=== PATIENT | female | born 1945 | race African-American/Black ===

== ENCOUNTER 2024-05-31 18:08 | Inpatient (IN) | payer MEDICARE ==
[~2024-05-31] VITALS: Ht 172.7 cm; Wt 94.3 kg
[2024-05-31] MEDS: VANCOMYCIN 1G PREMIX 200 ML IV ONE (18:45)
[2024-05-31 19:13] LABS: BASOPHILS % 0.1 % (0.0-2.0); DIFFERENTIAL COMMENT 0; EOSINOPHILS % 0.1 % (0.0-5.0); HEMATOCRIT. 40.3 % (36.0-48.0); HEMOGLOBIN. 13.4 g/dL (12.0-16.0); MEAN CORPUSCULAR HEMOGLOBIN 28.4 pg (28.0-32.0); MEAN CORPUSCULAR HGB CONC 33.3 g/dL (31.0-37.0); MEAN CORPUSCULAR VOLUME 85.2 fL (81.0-99.0); MEAN PLATELET VOLUME 8.6 fl (7.4-10.4); MONOCYTES % 7.8 % (2.0-8.0); PLATELET 171 x1000/uL (130-400); RED BLOOD CELL COUNT 4.73 mill/uL (4.2-5.4); RED CELL DISTRIBUTION WIDTH 12.9 % (11.6-14.6); WHITE BLOOD COUNT 16.1 x1000/uL (4.5-11.0)
[2024-05-31 19:23] LABS: CHLORIDE 96 mEq/L (98-107); INR 1.3; POTASSIUM 4.5 mEq/L (3.5-5.1); PROTHROMBIN TIME 13.7 sec (9.6-11.0); SODIUM 132 mEq/L (136-145)
[2024-05-31 19:24] LABS: CALCIUM 9.7 mg/dL (8.7-10.4); CARBON DIOXIDE 17 mEq/L (21-32)
[2024-05-31] MEDS: SODIUM CHLORIDE 0.9% (SEPSIS BOLUS) IV ONE (19:26)
[2024-05-31 19:29] LABS: CREATININE 4.7 mg/dL (0.6-1.0); ETHANOL BLOOD < 10 mg/dL (<10); GLUCOSE 226 mg/dL (70-105); UREA NITROGEN BLOOD 98 mg/dL (9-23)
[2024-05-31 19:30] LABS: ALANINE AMINOTRANSFERASE 15 IU/L (10-49)
[2024-05-31 19:31] LABS: ALBUMIN 4.1 g/dL (3.2-4.8); ASPARTATE AMINOTRANSFERASE 32 IU/L (<34); BILIRUBIN DIRECT 1.4 mg/dL (<=3.0); BILIRUBIN TOTAL 2.6 mg/dL (0.1-1.0); CREATINE KINASE 1253 IU/L (34-145); PROTEIN TOTAL 7.7 g/dL (6.0-8.3)
[2024-05-31] MEDS: PIPERACILLIN/TAZO 3.375G/50ML 50 ML IV ONE (19:34)
[2024-05-31 19:39] LABS: TROPONIN I HIGH SENSITIVITY 68 ng/L (3.0-34)
[2024-05-31 20:33] LABS: BG BASE EXCESS -11.7 mmol/L (-2.0-3.0); BG CARBOXYHEMOGLOBIN 0.3 % (0.5-1.5); BG DEOXYHEMOGLOBIN 0.9 % (0.0-5.0); BG FRACTION INSPIRED OXYGEN 40; BG HCO3 ACT 12.5 mmol/L (21.0-28.0); BG OXYGEN SATURATION 99.1 % (94.0-98.0); BG OXYHEMOGLOBIN 98.8 % (94.0-98.0); BG PCO2 24.6 mmHg (32.0-45.0); BG PH 7.324 (7.350-7.450); BG PO2 170.7 mmHg (83.0-108.0); BG SAMPLE SITE LEFT BRACHIAL; BG TOTAL HEMOGLOBIN 12.9 g/dL (12.0-16.0); BG VENT MODE NASAL CANNULA
[2024-05-31 20:59] LABS: CLARITY URINE CLEAR (CLEAR); COLOR URINE DARK YELLOW (YELLOW); GLUCOSE URINE NEGATIVE (NEGATIVE); KETONES URINE NEGATIVE (NEGATIVE); LEUKOCYTE ESTERASE URINE TRACE (NEGATIVE); NITRITE URINE NEGATIVE (NEGATIVE); OCCULT BLOOD URINE NEGATIVE (NEGATIVE); PH URINE 5.5 (4.5-8.0); PROTEIN URINE TRACE (NEGATIVE); SPECIFIC GRAVITY URINE 1.014 (1.005-1.030)
[2024-05-31 21:12] LABS: *AMPHETAMINES SCREEN URINE NEGATIVE (NEGATIVE); *BARBITURATES SCREEN URINE NEGATIVE (NEGATIVE); *BENZODIAZEPINES SCREEN URINE NEGATIVE (NEGATIVE); *COCAINE SCREEN URINE NEGATIVE (NEGATIVE); CANNABINOID URINE SCREEN NEGATIVE (NEGATIVE); ECSTASY MDMA SCREEN URINE NEGATIVE (NEGATIVE); METHADONE URINE SCREEN NEGATIVE (NEGATIVE); OPIATES URINE SCREEN NEGATIVE (NEGATIVE); PHENCYCLIDINE URINE SCREEN NEGATIVE (NEGATIVE)
[2024-05-31] MEDS ORDERED: GUAIFENESIN 200MG/10ML SUGAR FREE UDC PO PRN (21:15)
[2024-05-31] MEDS: SODIUM CHLORIDE 0.9% 1,000 ML IV ONE (21:15)
[2024-05-31] MEDS ORDERED: ACETAMINOPHEN 325MG TABLET PO PRN (21:15)
[2024-05-31] MEDS ORDERED: IPRATROPIUM/ALBUTEROL 0.5-3(2.5)MG/3ML NEB HHN PRN (21:15)
[2024-05-31] MEDS ORDERED: MAGNESIUM/ALUMINUM HYDROXIDE/SIMETHICONE 30ML UDC PO PRN (21:15)
[2024-05-31] MEDS ORDERED: ONDANSETRON HCL 4MG/2ML INJ IV PRN (21:15)
[2024-05-31] MEDS ORDERED: CLONIDINE 0.1MG TABLET PO PRN (21:15)
[2024-05-31] MEDS ORDERED: DOCUSATE SODIUM 100MG CAPSULE PO PRN (21:15)
[2024-05-31 21:34] LABS: RBC URINE NONE SEEN /hpf (0-2); WBC URINE 0-2 /hpf (0-2)
[2024-05-31 21:35] LABS: BACTERIA URINE NONE SEEN; SQUAMOUS EPITHELIAL CELL URINE FEW /lpf (RARE/1+)
[2024-05-31 21:54] LABS: INFLUENZA TYPE A Presumptive Negative (Pres. Neg.); INFLUENZA TYPE B Presumptive Negative (Pres. Neg.)
[2024-05-31] MEDS: MIDODRINE HCL 5MG TABLET PO NR (22:38)
[2024-05-31 22:41] LABS: IRON 65 ug/dL (50-170)
[2024-05-31 22:42] LABS: TRIGLYCERIDE 171 mg/dL (0-150)
[2024-05-31 22:43] LABS: LDL CHOLESTEROL 164 mg/dL (5-100)
[2024-05-31 22:44] LABS: CHOLESTEROL 234 mg/dL (<200); HDL CHOLESTEROL 36 mg/dL (>65); PHOSPHORUS 7.2 mg/dL (2.5-4.9); TOTAL IRON BINDING CAPACITY 270 ug/dl (250-425)
[2024-05-31 22:46] LABS: T4 FREE 1.29 ng/dL (0.89-1.76)
[2024-05-31 22:47] LABS: THYROID STIMULATING HORMONE 1.42 uIU/mL (0.55-4.78)
[2024-05-31] MEDS ORDERED: GABAPENTIN 100MG CAPSULE PO SCH (23:00)
[2024-05-31] MEDS: ENOXAPARIN 80MG/0.8ML SYR SUBCUT SCH (23:41)
[2024-05-31] MEDS: PANTOPRAZOLE SODIUM 40 MG/VIAL IV ONE (23:42)
[2024-05-31] MEDS ORDERED: PANTOPRAZOLE SODIUM 40 MG/VIAL IV NR (23:45)
[2024-06-01] VITALS (57 sets, daily range): BP systolic 71–134; BP diastolic 51–105; PULSE 85–108; RESP 12–33; TEMP 36.1–36.9; O2SAT 92–100
[2024-06-01 00:30] LABS: POTASSIUM 4.3 mEq/L (3.5-5.1)
[2024-06-01 00:31] LABS: CALCIUM 8.2 mg/dL (8.7-10.4)
[2024-06-01 00:36] LABS: CREATININE 4.4 mg/dL (0.6-1.0)
[2024-06-01 00:37] LABS: AMMONIA < 17 uMol/L (<32); CREATINE KINASE MB FRACTION 41.8 ng/mL (0.5-3.6)
[2024-06-01] MEDS ORDERED: DEXTROSE 50% WATER 50ML SYRINGE IV PRN (01:30)
[2024-06-01] MEDS: SODIUM CHLORIDE 0.9% 1,000 ML IV SCH (04:15)
[2024-06-01 05:44] LABS: CHLORIDE 102 mEq/L (98-107); POTASSIUM 4.7 mEq/L (3.5-5.1); SODIUM 135 mEq/L (136-145)
[2024-06-01 05:45] LABS: CALCIUM 8.6 mg/dL (8.7-10.4); CARBON DIOXIDE 16 mEq/L (21-32)
[2024-06-01 05:50] LABS: CREATININE 4.4 mg/dL (0.6-1.0); GLUCOSE 140 mg/dL (70-105); UREA NITROGEN BLOOD 90 mg/dL (9-23)
[2024-06-01 05:52] LABS: PHOSPHORUS 6.7 mg/dL (2.5-4.9)
[2024-06-01] MEDS: GABAPENTIN SOLN 300MG/6ML UDC PO SCH (06:00)
[2024-06-01 06:03] LABS: CREATINE KINASE 2413 IU/L (34-145)
[2024-06-01 06:04] LABS: TROPONIN I HIGH SENSITIVITY 52 ng/L (3.0-34)
[2024-06-01] MEDS: VANCOMYCIN 500MG/100ML IV NR (07:21)
[2024-06-01] MEDS: BLOOD SUGAR DIAGNOSTIC STRIP TEST SCH (07:30)
[2024-06-01 07:56] LABS: BASOPHILS % 0.1 % (0.0-2.0); DIFFERENTIAL COMMENT 0; HEMATOCRIT. 43.7 % (36.0-48.0); HEMOGLOBIN. 13.6 g/dL (12.0-16.0); LYMPHOCYTES % 9.6 % (20.0-50.0); MEAN CORPUSCULAR HEMOGLOBIN 27.9 pg (28.0-32.0); MEAN PLATELET VOLUME 8.8 fl (7.4-10.4); MONOCYTES % 9.2 % (2.0-8.0); NEUTROPHILS % 81.1 % (40.0-76.0); PLATELET 157 x1000/uL (130-400); RED BLOOD CELL COUNT 4.86 mill/uL (4.2-5.4); RED CELL DISTRIBUTION WIDTH 13.5 % (11.6-14.6); WHITE BLOOD COUNT 17.8 x1000/uL (4.5-11.0)
[2024-06-01] MEDS: INSULIN LISPRO 100 UNITS/ML SUBCUT SCH (08:00)
[2024-06-01] MEDS: FAMOTIDINE 20MG/2ML VIAL IV SCH (10:14)
[2024-06-01] MEDS: SODIUM CHLORIDE 0.9% 1,000 ML IV ONE (10:14)
[2024-06-01] MEDS: PIPERACILLIN/TAZO 3.375G/50ML 50 ML IV SCH (10:15)
[2024-06-01] MEDS: NOREPINEPHRINE 8MG/250ML PMX 250 ML IV PRN (11:59)
[2024-06-01] MEDS: ENOXAPARIN 100MG/ML SYR SUBCUT SCH (19:27)
[2024-06-01] MEDS: ATORVASTATIN CALCIUM 40MG TABLET PO SCH (21:12)
[2024-06-01 21:15] LABS: HEMATOCRIT 38.2 % (36.0-48.0); HEMOGLOBIN 12.9 g/dL (12.0-16.0)
[2024-06-02] VITALS (47 sets, daily range): BP systolic 93–124; BP diastolic 66–109; PULSE 81–101; RESP 15–31; TEMP 36.3–37.2; O2SAT 95–100
[2024-06-02 05:39] LABS: HEMATOCRIT 36.1 % (36.0-48.0); HEMOGLOBIN 11.9 g/dL (12.0-16.0); MEAN CORPUSCULAR HEMOGLOBIN 28.2 pg (28.0-32.0); MEAN CORPUSCULAR VOLUME 85.4 fL (81.0-99.0); PLATELET 236 x1000/uL (130-400); RED BLOOD CELL COUNT 4.23 mill/uL (4.2-5.4); RED CELL DISTRIBUTION WIDTH 13.1 % (11.6-14.6); WHITE BLOOD COUNT 13.8 x1000/uL (4.5-11.0)
[2024-06-02 05:46] LABS: CHLORIDE 110 mEq/L (98-107); POTASSIUM 3.4 mEq/L (3.5-5.1); SODIUM 139 mEq/L (136-145)
[2024-06-02 05:47] LABS: CARBON DIOXIDE 14 mEq/L (21-32)
[2024-06-02 05:48] LABS: CALCIUM 8.3 mg/dL (8.7-10.4)
[2024-06-02 05:52] LABS: GLUCOSE 140 mg/dL (70-105)
[2024-06-02 05:53] LABS: UREA NITROGEN BLOOD 91 mg/dL (9-23)
[2024-06-02 05:54] LABS: CREATINE KINASE 1170 IU/L (34-145)
[2024-06-02 06:11] LABS: CREATININE 2.7 mg/dL (0.6-1.0)
[2024-06-02] MEDS: POTASSIUM CHLORIDE 20MEQ/PACKET PO NR (08:03)
[2024-06-02] MEDS ORDERED: PANTOPRAZOLE SODIUM 40 MG/VIAL IV SCH (09:00)
[2024-06-02] MEDS ORDERED: FAMOTIDINE 20MG/2ML VIAL IV SCH (09:00)
[2024-06-02] MEDS: SODIUM BICARBONATE 650MG TABLET PO SCH (09:00)
[2024-06-02] MEDS: FAMOTIDINE 20MG/2ML VIAL IV SCH (09:00)
[2024-06-02] MEDS: VANCOMYCIN 750MG PMX (XELLIA) 150 ML IV SCH (11:25)
[2024-06-02] MEDS: PIPERACILLIN/TAZO 3.375G/50ML IV SCH (15:14)
[2024-06-03] VITALS (12 sets, daily range): BP systolic 99–131; BP diastolic 72–100; PULSE 77–90; RESP 15–32; TEMP 36.1–37; O2SAT 83–100
[2024-06-03 07:20] LABS: CALCIUM 8.8 mg/dL (8.7-10.4); CARBON DIOXIDE 18 mEq/L (21-32); CHLORIDE 114 mEq/L (98-107); POTASSIUM 3.8 mEq/L (3.5-5.1); SODIUM 145 mEq/L (136-145)
[2024-06-03 07:23] LABS: HEMATOCRIT. 35.9 % (36.0-48.0); HEMOGLOBIN. 11.7 g/dL (12.0-16.0); MEAN CORPUSCULAR HEMOGLOBIN 27.8 pg (28.0-32.0); MEAN CORPUSCULAR HGB CONC 32.5 g/dL (31.0-37.0); MEAN CORPUSCULAR VOLUME 85.5 fL (81.0-99.0); MEAN PLATELET VOLUME 8.5 fl (7.4-10.4); PLATELET 304 x1000/uL (130-400); RED CELL DISTRIBUTION WIDTH 13.2 % (11.6-14.6); WHITE BLOOD COUNT 13.4 x1000/uL (4.5-11.0)
[2024-06-03 07:26] LABS: GLUCOSE 156 mg/dL (70-105); UREA NITROGEN BLOOD 74 mg/dL (9-23)
[2024-06-03 07:31] LABS: CREATININE 1.8 mg/dL (0.6-1.0)
[2024-06-03 08:11] LABS: DIFFERENTIAL COMMENT 1
[2024-06-03 12:38] LABS: PLATELET ESTIMATE NORMAL
[2024-06-03] MEDS: VANCOMYCIN 1.25GM/250ML 250 ML IV SCH (12:41)
[2024-06-03] MEDS: ACETAMINOPHEN 325MG TABLET PO PRN (20:28)
[2024-06-04] VITALS (14 sets, daily range): BP systolic 101–124; BP diastolic 55–93; PULSE 67–90; RESP 11–24; TEMP 36.1–37.1; O2SAT 96–100
[2024-06-04 04:11] LABS: B-2 GLYCOPROTEIN IGA < 9 (0-25); B-2 GLYCOPROTEIN IGG < 9 (0-20)
[2024-06-04 06:11] LABS: CHLORIDE 117 mEq/L (98-107); POTASSIUM 3.9 mEq/L (3.5-5.1); SODIUM 151 mEq/L (136-145)
[2024-06-04 06:12] LABS: CALCIUM 9.6 mg/dL (8.7-10.4); CARBON DIOXIDE 21 mEq/L (21-32)
[2024-06-04 06:17] LABS: CREATININE 1.4 mg/dL (0.6-1.0); GLUCOSE 141 mg/dL (70-105); UREA NITROGEN BLOOD 51 mg/dL (9-23)
[2024-06-04] MEDS: DEXTROSE 5% WATER 1,000 ML IV SCH (10:43)
[2024-06-04] MEDS: DOCUSATE SODIUM 100MG CAPSULE PO SCH (18:50)
[2024-06-04] MEDS: VANCOMYCIN 750MG/150ML (BAXTER) IV SCH (20:27)
[2024-06-04] MEDS: LACTULOSE 20G/30ML UDC PO SCH (20:28)
[2024-06-04 21:29] LABS: HEMATOCRIT 37.5 % (36.0-48.0); HEMOGLOBIN 12.1 g/dL (12.0-16.0)
[2024-06-05] VITALS (13 sets, daily range): BP systolic 105–144; BP diastolic 74–96; PULSE 70–96; RESP 16–29; TEMP 36.4–37.2; O2SAT 96–100
[2024-06-05 06:50] LABS: CHLORIDE 118 mEq/L (98-107); POTASSIUM 3.7 mEq/L (3.5-5.1); SODIUM 152 mEq/L (136-145)
[2024-06-05 06:51] LABS: CARBON DIOXIDE 25 mEq/L (21-32)
[2024-06-05 06:52] LABS: CALCIUM 9.5 mg/dL (8.7-10.4)
[2024-06-05 06:55] LABS: HEMATOCRIT. 35.4 % (36.0-48.0); HEMOGLOBIN. 11.4 g/dL (12.0-16.0); MEAN CORPUSCULAR HEMOGLOBIN 27.9 pg (28.0-32.0); MEAN CORPUSCULAR HGB CONC 32.3 g/dL (31.0-37.0); MEAN CORPUSCULAR VOLUME 86.6 fL (81.0-99.0); MEAN PLATELET VOLUME 8.1 fl (7.4-10.4); PLATELET 416 x1000/uL (130-400); RED BLOOD CELL COUNT 4.09 mill/uL (4.2-5.4); RED CELL DISTRIBUTION WIDTH 13.4 % (11.6-14.6); WHITE BLOOD COUNT 13.9 x1000/uL (4.5-11.0)
[2024-06-05 06:57] LABS: CREATININE 1.3 mg/dL (0.6-1.0); GLUCOSE 157 mg/dL (70-105); UREA NITROGEN BLOOD 42 mg/dL (9-23)
[2024-06-05 06:58] LABS: ALANINE AMINOTRANSFERASE 145 IU/L (10-49); ALBUMIN 3.4 g/dL (3.2-4.8); ASPARTATE AMINOTRANSFERASE 87 IU/L (<34); DIFFERENTIAL COMMENT 1
[2024-06-05 06:59] LABS: BILIRUBIN DIRECT 0.2 mg/dL (<=3.0); BILIRUBIN TOTAL 0.5 mg/dL (0.1-1.0); PROTEIN TOTAL 6.5 g/dL (6.0-8.3)
[2024-06-05 07:05] LABS: FOLIC ACID (FOLATE) SERUM 6.04 ng/mL (>5.38); VITAMIN B12 SERUM 804 pg/mL (211-911)
[2024-06-05 07:16] LABS: HEPATITIS B SURFACE ANTIGEN NEGATIVE (Negative)
[2024-06-05 07:36] LABS: HEPATITIS A AB IGM NEGATIVE (Negative)
[2024-06-05 07:37] LABS: HEPATITIS B CORE AB IGM NEGATIVE (Negative); HEPATITIS C AB NON REACTIVE (Neg) (Negative)
[2024-06-05 20:00] LABS: GIANT PLATELETS FEW; PLATELET ESTIMATE SLIGHTLY INCREASED
[2024-06-06] VITALS (11 sets, daily range): BP systolic 112–149; BP diastolic 73–117; PULSE 75–97; RESP 16–30; TEMP 37–37.7; O2SAT 94–100
[2024-06-06] MEDS: DOCUSATE SODIUM SUGAR FREE 100MG/10ML UDC PO SCH (00:02)
[2024-06-06 08:19] LABS: HEMATOCRIT. 39.2 % (36.0-48.0); HEMOGLOBIN. 12.7 g/dL (12.0-16.0); MEAN CORPUSCULAR HEMOGLOBIN 28.6 pg (28.0-32.0); MEAN CORPUSCULAR HGB CONC 32.4 g/dL (31.0-37.0); MEAN CORPUSCULAR VOLUME 88.3 fL (81.0-99.0); MEAN PLATELET VOLUME 7.9 fl (7.4-10.4); PLATELET 481 x1000/uL (130-400); RED BLOOD CELL COUNT 4.44 mill/uL (4.2-5.4); WHITE BLOOD COUNT 19.6 x1000/uL (4.5-11.0)
[2024-06-06 08:30] LABS: DIFFERENTIAL COMMENT 1
[2024-06-06 08:39] LABS: POTASSIUM 3.9 mEq/L (3.5-5.1)
[2024-06-06 08:40] LABS: CALCIUM 9.3 mg/dL (8.7-10.4)
[2024-06-06 08:45] LABS: CREATININE 1.2 mg/dL (0.6-1.0)
[2024-06-06] MEDS: ENOXAPARIN 100MG/ML SYR SUBCUT SCH (10:20)
[2024-06-06 14:11] LABS: PLATELET ESTIMATE INCREAS
[2024-06-06 14:25] LABS: CLARITY URINE CLOUDY (CLEAR); COLOR URINE YELLOW (YELLOW); GLUCOSE URINE NEGATIVE (NEGATIVE); KETONES URINE TRACE (NEGATIVE); LEUKOCYTE ESTERASE URINE NEGATIVE (NEGATIVE); NITRITE URINE NEGATIVE (NEGATIVE); OCCULT BLOOD URINE 3+ (NEGATIVE); PH URINE 5.5 (4.5-8.0); PROTEIN URINE 2+ (NEGATIVE); UROBILINOGEN URINE 0.2 E.U./dL (0.2-1.0)
[2024-06-06 14:44] LABS: SQUAMOUS EPITHELIAL CELL URINE RARE /lpf (RARE/1+); URIC ACID CRYSTALS URINE 1+ /lpf
[2024-06-06 14:45] LABS: BACTERIA URINE 1+; RBC URINE 50-100 /hpf (0-2); WBC URINE 0-2 /hpf (0-2)
[2024-06-06] MEDS: VANCOMYCIN 1.25GM/250ML 250 ML IV SCH (18:15)
[2024-06-07] VITALS: BP 102/69; PULSE 79; RESP 16; TEMP 36.7; O2SAT 99
[2024-06-07 04:00] VITALS: BP 133/93; PULSE 75; RESP 16; TEMP 37; O2SAT 100
[2024-06-07 06:20] LABS: HEMATOCRIT. 37.2 % (36.0-48.0); HEMOGLOBIN. 12.1 g/dL (12.0-16.0); MEAN CORPUSCULAR HEMOGLOBIN 28.5 pg (28.0-32.0); MEAN CORPUSCULAR HGB CONC 32.5 g/dL (31.0-37.0); MEAN CORPUSCULAR VOLUME 87.6 fL (81.0-99.0); MEAN PLATELET VOLUME 7.7 fl (7.4-10.4); PLATELET 436 x1000/uL (130-400); RED BLOOD CELL COUNT 4.25 mill/uL (4.2-5.4); RED CELL DISTRIBUTION WIDTH 13.9 % (11.6-14.6); WHITE BLOOD COUNT 18.4 x1000/uL (4.5-11.0)
[2024-06-07 06:23] LABS: CALCIUM 8.8 mg/dL (8.7-10.4); POTASSIUM 3.7 mEq/L (3.5-5.1)
[2024-06-07 06:29] LABS: CREATININE 1.1 mg/dL (0.6-1.0)
[2024-06-07 07:03] LABS: DIFFERENTIAL COMMENT 1
[2024-06-07 08:00] VITALS: BP 107/75; PULSE 66; RESP 14; TEMP 37.3; O2SAT 62; O2SAT 98
[2024-06-07 12:00] VITALS: BP 114/75; PULSE 85; RESP 23; O2SAT 100
[2024-06-07 16:00] VITALS: BP 133/98; PULSE 105; RESP 30; TEMP 37.1; O2SAT 87
[2024-06-07 17:44] LABS: PLATELET ESTIMATE INCREASED
[2024-06-07 20:00] VITALS: BP 110/74; PULSE 112; RESP 33; TEMP 37.2; O2SAT 95
[2024-06-08] VITALS: BP 96/58; PULSE 97; RESP 35; TEMP 37; O2SAT 99
[2024-06-08 04:00] VITALS: BP 87/67; PULSE 84; RESP 25; TEMP 36.6; TEMP 36.7; O2SAT 99
[2024-06-08 05:51] LABS: HEMATOCRIT 25.4 % (36.0-48.0); HEMOGLOBIN 8.4 g/dL (12.0-16.0)
[2024-06-08] MEDS: SODIUM CHLORIDE 0.9% 500 ML IV ONE (06:18)
[2024-06-08 07:00] VITALS: BP 87/68; PULSE 100
[2024-06-08 07:14] VITALS: BP 98/77; PULSE 102
[2024-06-08] MEDS ORDERED: ALBUMIN HUMAN 25GM/100ML (25%) IV NR ×2 (09:30)
[2024-06-08] MEDS ORDERED: NOREPINEPHRINE 8MG/250ML PMX 250 ML IV PRN (09:45)
== END 2024-06-08 12:30 | DRG 871 ==
LOC: ER 18:08 → 5EST 20:37 → EDBEDREQ 20:50 → EDBEDREQSVC 20:50 → EDBEDREQTM 20:50 → MICUNO 06-01 11:20 → 5EST 06-02 19:00
PROVIDERS: ADMIT Hospitalist; ATTEND Internal Medicine
DX: A41.1 Sepsis due to other specified staphylococcus (principal); G93.41 Metabolic encephalopathy; R65.21 Severe sepsis with septic shock; I21.A1 Myocardial infarction type 2; N17.0 Acute kidney failure with tubular necrosis; N13.6 Pyonephrosis; N17.9 Acute kidney failure, unspecified; M62.82 Rhabdomyolysis; E87.1 Hypo-osmolality and hyponatremia; E87.20 Acidosis, unspecified; I82.403 Acute embolism and thrombosis of unspecified deep veins of lower extremity, bilateral; Z68.30 Body mass index [BMI] 30.0-30.9, adult; Z20.822 Contact with and (suspected) exposure to COVID-19; I10 Essential (primary) hypertension; E11.65 Type 2 diabetes mellitus with hyperglycemia; D64.9 Anemia, unspecified; F03.90 Unspecified dementia, unspecified severity, without behavioral disturbance, psychotic disturbance, mood disturbance, and anxiety; M79.7 Fibromyalgia; E78.5 Hyperlipidemia, unspecified; E83.39 Other disorders of phosphorus metabolism; E80.6 Other disorders of bilirubin metabolism; Z66 Do not resuscitate; R62.7 Adult failure to thrive; Z90.49 Acquired absence of other specified parts of digestive tract; Z90.710 Acquired absence of both cervix and uterus; Z55.6 Problems related to health literacy; Z82.49 Family history of ischemic heart disease and other diseases of the circulatory system; Z79.899 Other long term (current) drug therapy
CPT/HCPCS: 36415; 36600; 70551; 71045; 74018; 74176; 78580; 80048; 80061; 80076; 80202; 80305; 80320; 81003; 82140; 82270; 82375; 82550; 82553; 82607; 82728; 82746; 82805; 82962; 83036; 83540; 83550; 83605; 83735; 83880; 83930; 84100; 84145; 84439; 84443; 84484; 85014; 85018; 85025; 85027; 85044; 85379; 86038; 86146; 86225; 86705; 86709; 86850; 86900; 87070; 87077; 87186; 87340; 87426; 87430; 87804; 93005; 93970; 94070; 94760; 97162; 97166; 99291; A4606; J1650; J1815; J2470; J2543; J3370; J3490; J7030; J7070; P9047; A5200; G0480